=== PATIENT | male | born 1970 ===

== ENCOUNTER 2017-06-17 00:50 | Emergency (ER) | payer MEDICARE ==
[2017-06-17 00:50] VITALS: BMI 28.7
--- NOTE | 2017-06-17 02:15 | C.PDOC ---
History Of Present Illness 47 year old male with PMHx of HIV- on antiviral meds, presents to the ED c/o headache, nasal congestion,fever, chills that started around 15:00 today. Patient reports he has not taken any medication at home for his symptoms. Patient denies cough, SOB, nausea, vomiting, diarrhea, abdominal pain. Time Seen by Provider: 06/17/17 00:59 Chief Complaint (Nursing): Flu-like Symptoms History Per: Patient History/Exam Limitations: no limitations Onset/Duration Of Symptoms: Hrs Current Symptoms Are (Timing): Still Present Location Of Pain: Headache Sick Contacts (Context): None Associated Symptoms: Fever, Chills, Myalgias, Nasal Congestion. denies: Sore Throat, Cough, Neck Pain, Vomiting Ear Symptoms: Bilateral: None Recent travel outside of the [place]: No Additional History Per: Patient Past Medical History Reviewed: Historical Data, Nursing Documentation, Vital Signs Vital Signs: Last Vital Signs Temp 98.2 F 06/17/17 04:51 Pulse 90 06/17/17 04:51 Resp 20 06/17/17 04:51 BP 134/79 06/17/17 04:51 Pulse Ox 99 06/17/17 05:05 - Medical History PMH: Anxiety, Depression, HIV, HTN, Hyperlipidemia Denies: Diabetes, Hepatitis, Chronic Kidney Disease, Seizures, Sexually Transmitted Disease Surgical History: No Surg Hx Family History: States: Unknown Family Hx - Social History Hx Tobacco Use: No Hx Alcohol Use: No Hx Substance Use: No - Immunization History Hx Influenza Vaccination: Yes Hx Pneumococcal Vaccination: No Review Of Systems Constitutional: Positive for: Fever, Chills ENT: Positive for: Nose Congestion. Negative for: Nose Discharge, Throat Pain Respiratory: Negative for: Cough, Shortness of Breath Musculoskeletal: Negative for: Neck Pain Skin: Negative for: Rash Neurological: Positive for: Headache Physical Exam - Physical Exam Appears: Non-toxic, No Acute Distress Skin: Normal Color, Warm, Dry Head: Atraumatic, Normacephalic, Tenderness (frontal sinus) Eye(s): bilateral: Normal Inspection Nose: Discharge (thick) Oral Mucosa: Moist Neck: Normal ROM, Supple Chest: Symmetrical Cardiovascular: Rhythm Regular, No Murmur Respiratory: Normal Breath Sounds, No Rales, No Rhonchi, No Wheezing Gastrointestinal/Abdominal: Soft, No Tenderness, No Guarding, No Rebound Extremity: Normal ROM, No Tenderness, No Swelling Neurological/Psych: Oriented x3, Normal Speech, Normal Cognition, Normal Motor, Normal Sensation, Other (no focal deficits) Gait: Steady ED Course And Treatment O2 Sat by Pulse Oximetry: 99 (ON RA) Pulse Ox Interpretation: Normal - Radiology CXR: Interpreted by Me CXR Interpretation: Yes: No Acute Disease. No: Infiltrates - CT Scan/US Head CT Other Rad Studies (CT/US): Interpreted By Me, Read By Radiologist, Radiology Report Reviewed CT/US Interpretation: No acute intracranial findings, chronic sinusitus. Dictated by Dr Anne Progress Note: Plan: - CT head. - CXR. - Toradol 30 mg IM. Pt is comfortable and in NAD, Diagnostics reviewed and pt is to be followed up win clinic, RX given and return precautions expalined Reevaluation Time: 05:00 Reassessment Condition: Improved Disposition Counseled Patient/Family Regarding: Diagnosis, Need For Followup, Rx Given - Disposition Referrals: [facility] at [facility] [Outside] Disposition: HOME/ ROUTINE Disposition Time: 05:03 Condition: GOOD Additional Instructions: Please follow up with PMD or in clinic Take meds as directed Return to ER if worse Prescriptions: Cetirizine HCl [Zyrtec] 10 mg PO DAILY #20 capsule Ibuprofen [Motrin] 600 mg PO Q6H #20 tab Mometasone Furoate [Nasonex] 2 spray NS DAILY #1 bottle Instructions: Sinusitis, Adult (DC) Forms: [facility] (Slovenian) - Clinical Impression Clinical Impression: Sinusitis, Upper respiratory infection - PA / DIRECTOR OF SOCIAL SERVICES / Resident Statement MD/DO has reviewed & agrees with the documentation as recorded. - Scribe Statement The provider has reviewed the documentation as recorded by the Scribe Fredy Merrill All medical record entries made by the Scribe were at my direction and personally dictated by me. I have reviewed the chart and agree that the record accurately reflects my personal performance of the history, physical exam, medical decision making, and the department course for this patient. I have also personally directed, reviewed, and agree with the discharge instructions and disposition.
--- NOTE | 2017-06-17 03:59 | CT ---
EXAM: CT Head Without Intravenous Contrast CLINICAL HISTORY: 47 years old, male; Pain; Headache; Additional info: Moderate headache TECHNIQUE: Axial computed tomography images of the head/brain without intravenous contrast. All CT scans at this facility use one or more dose reduction techniques, viz.: automated exposure control; ma/kV adjustment per patient size (including targeted exams where dose is matched to indication; i.e. head); or iterative reconstruction technique. Coronal and sagittal reformatted images were created and reviewed. COMPARISON: No relevant prior studies available. FINDINGS: Brain: Unremarkable. No hemorrhage. No significant white matter disease. No edema. Ventricles: Unremarkable. No ventriculomegaly. Bones/joints: Unremarkable. No acute fracture. Soft tissues: Unremarkable. Sinuses: There is diffuse mucoperiosteal thickening in the right maxillary and ethmoid sinuses, consistent with chronic sinusitis. Mastoid air cells: Unremarkable as visualized. No mastoid effusion. IMPRESSION: No acute intracranial findings. Chronic sinusitis.
[2017-06-17 04:11] VITALS: RESP 20
[2017-06-17 04:51] VITALS: BP 134/79; PULSE 90; TEMP 98.2
[2017-06-17 04:59] VITALS: O2SAT 99
--- NOTE | 2017-06-17 07:22 | RAD ---
Chest x-ray two views History: Cough and fever. Comparison: None available. Findings: Mild venous congestion. No focal infiltrate or effusion. Heart size within normal limits. Impression: No focal infiltrate or effusion.
== END 2017-06-17 05:43 | disposition home or self-care (01) ==
LOC: C.ER 00:50
DX: J01.90 Acute sinusitis, unspecified (principal); I10 Essential (primary) hypertension
CPT/HCPCS: 70450; 71046; 96372; 99285; J1885